=== PATIENT | female | born 1995 | race African-American/Black ===

== ENCOUNTER 2017-08-14 19:56 | Emergency (ER) | payer MEDICAID ==
[~2017-08-14] VITALS: Ht 172.7 cm; Wt 77.2 kg
[~2017-08-14 19:56] MED LIST: CLIN-80 PO; CYCL-1 PO; DOXY100V2 PO; HYDR-569 PO; NAPR-56 PO; NITR100C6 PO; NO HOME MEDS; ONDA4TAB12 PO; ONDA4TAB6 PO; ONDA8TAB9 PO; SUMA100T PO
[2017-08-14 20:48] LABS: URINE HCG NEGATIVE (NEG)
[2017-08-14 20:59] LABS: COLOR,URINE Yellow (Yellow); GLUCOSE, URINE Negative (Neg); KETONES,URINE Negative (Neg); LEUKOCYTE ESTERASE ,URINE Moderate (Neg); NITRITES, URINE Negative (Neg); OCCULT BLOOD,URINE Negative (Neg); PH,URINE 6.5 (4.8-8.0); PROTEIN,URINE Negative (Neg)
[2017-08-14 21:04] LABS: CLARITY,URINE Slightly Cloudy (Clear); UA COLLECTION TYPE CLN CATCH MIDSTREAM
[2017-08-14 21:18] LABS: BACTERIA,URINE 2+ /HPF (Neg); MUCUS STRANDS FEW /LPF (Neg); RBC,URINE NONE SEEN /HPF (0-2); SQUAMOUS EPITHELIAL CELL,UR MANY /LPF (FEW)
[2017-08-14 21:24] VITALS: BP 114/70
[2017-08-14 21:52] LABS: BASOPHILS # (AUTO) 0.1 X10'3 (0-0.2); BASOPHILS % (AUTO) 0.7 % (0-1); EOSINOPHILS # (AUTO) 0.2 X10'3 (0-0.9); EOSINOPHILS % (AUTO) 1.8 % (0-6); HEMATOCRIT 39.5 % (35.0-45.0); HEMOGLOBIN 12.9 g/dl (12.0-16.0); LYMPHOCYTES # (AUTO) 2.6 X10'3 (1.1-4.8); LYMPHOCYTES % (AUTO) 21.4 % (21-51); MEAN CORPUSCULAR HEMOGLOBIN 27.1 PG (27.0-31.0); MEAN CORPUSCULAR HGB CONC 32.7 % (33.0-36.5); MEAN PLATELET VOLUME 10.4 FL (7.4-10.4); MONOCYTES # (AUTO) 0.5 X10'3 (0-0.9); MONOCYTES % (AUTO) 4.6 % (2-12); NEUTROPHILS # (AUTO) 8.6 X10'3 (1.8-7.7); NEUTROPHILS % (AUTO) 71.5 % (42-75); PLATELET COUNT 219 X10'3 (140-440); RED BLOOD COUNT 4.76 X10'6 (4.20-5.60); RED CELL DISTRIBUTION WIDTH 13.7 % (11.5-14.5)
[2017-08-14] MEDS ORDERED: ondansetron/PF 4mg/2ml inj IV ONE (21:55)
[2017-08-14] MEDS ORDERED: normal saline 1000ML IV soln IVB ONE (21:55)
[2017-08-14] MEDS ORDERED: fentaNYL/PF 50MCG/1 ML 2ML syringe IV ONE (21:55)
[2017-08-14 22:08] LABS: ALANINE AMINOTRANSFERASE 24 U/L (12-78); ALBUMIN 3.5 G/DL (3.4-5.0); ALBUMIN/GLOBULIN RATIO 0.8 (1.1-1.5); ALKALINE PHOSPHATASE 64 IU/L (46-116); ANION GAP 9 (8-16); ASPARTATE AMINO TRANSFERASE 13 U/L (10-37); BILIRUBIN,TOTAL 0.2 MG/DL (0.1-1.0); BLOOD UREA NITROGEN 12 MG/DL (7-18); BUN/CREATININE RATIO 12.4 (6.6-38.0); CALCIUM 9.3 MG/DL (8.5-10.1); CHLORIDE 106 MMOL/L (99-107); CREATININE 0.97 MG/DL (0.40-0.90); GLUCOSE 88 MG/DL (70-104); LIPASE 148 U/L (73-393); POTASSIUM 3.6 MMOL/L (3.5-5.1); SODIUM 142 MMOL/L (135-145); TOTAL CARBON DIOXIDE 27.4 MMOL/L (24-32); TOTAL PROTEIN 7.7 G/DL (6.4-8.2); eGFR 85 ML/MIN
[2017-08-14 22:19] LABS: TOTAL CELLS COUNTED 100
[2017-08-14 22:21] LABS: LARGE PLATELETS FEW; PLATELET ESTIMATE NORMAL; TOXIC VACUOLATION 2+
[2017-08-14] MEDS ORDERED: ONDA4TAB9 SL (23:23)
[2017-08-14] MEDS ORDERED: FAMO20TA44 PO (23:23)
[2017-08-14] MEDS ORDERED: SUCR1ORA2 PO (23:23)
[2017-08-14] MEDS ORDERED: OMEP20CA10 PO (23:23)
== END 2017-08-14 23:53 | disposition home or self-care (01) ==
LOC: ER 19:57
DX: K52.9 Noninfective gastroenteritis and colitis, unspecified (principal); R10.11 Right upper quadrant pain; Z86.14 Personal history of Methicillin resistant Staphylococcus aureus infection; Z79.899 Other long term (current) drug therapy
CPT/HCPCS: 36415; 76700; 80053; 81001; 81025; 83690; 85025; 96361; 96374; 96375; 99285; J2405; J3010; J7030

== ENCOUNTER 2017-09-15 11:55 | Emergency (ER) | payer MEDICAID ==
[~2017-09-15] VITALS: Ht 172.7 cm; Wt 80.0 kg
[~2017-09-15 11:55] MED LIST changes: +FAMO20TA44 PO; +OMEP20CA10 PO; +SUCR1ORA2 PO
[2017-09-15] MEDS ORDERED: proCHLORperazine 10mg tablet PO ONE (13:10)
[2017-09-15] MEDS ORDERED: ketorolac trometh inj. 60 MG/2 ML VIAL IM ONE (13:10)
[2017-09-15] MEDS ORDERED: aspirin 325mg tablet PO ONE (13:10)
[2017-09-15] MEDS ORDERED: acetaminophen 325mg tablet PO ONE (13:10)
[2017-09-15 14:27] LABS: CLARITY,URINE Clear (Clear); COLOR,URINE Yellow (Yellow); GLUCOSE, URINE Negative (Neg); KETONES,URINE Negative (Neg); LEUKOCYTE ESTERASE ,URINE Moderate (Neg); NITRITES, URINE Negative (Neg); OCCULT BLOOD,URINE Negative (Neg); PH,URINE 6.5 (4.8-8.0); PROTEIN,URINE Negative (Neg)
[2017-09-15 14:28] LABS: URINE HCG NEGATIVE (NEG)
[2017-09-15 14:30] LABS: UA COLLECTION TYPE NON-SPECIFIED
[2017-09-15 14:32] LABS: BACTERIA,URINE 1+ /HPF (Neg); MUCUS STRANDS NONE SEEN /LPF (Neg); RBC,URINE NONE SEEN /HPF (0-2); SQUAMOUS EPITHELIAL CELL,UR MODERATE /LPF (FEW)
[2017-09-15 15:00] LABS: PREOP URINE HCG NEGATIVE (NEGATIVE)
[2017-09-15] MEDS ORDERED: fluconazole 100mg tablet PO ONE (15:40)
[2017-09-15] MEDS ORDERED: CefTRIAXone 250MG IM Kit w/LIDOcaine IM ONE (15:40)
[2017-09-15] MEDS ORDERED: metroNIDAZOLE 500mg tablet PO ONE (15:40)
[2017-09-15] MEDS ORDERED: ondansetron 4mg rapidly disintigrating tab PO ONE (15:40)
[2017-09-15] MEDS ORDERED: azithromycin 250mg tablet PO ONE (15:40)
[2017-09-15] MEDS ORDERED: IBUP-1984 PO (15:43)
[2017-09-15 16:25] VITALS: BP 138/77
== END 2017-09-15 16:35 | disposition home or self-care (01) ==
LOC: ER 11:56
DX: N89.8 Other specified noninflammatory disorders of vagina (principal); R51 Headache; Z86.14 Personal history of Methicillin resistant Staphylococcus aureus infection; Z79.899 Other long term (current) drug therapy
CPT/HCPCS: 81001; 81025; 87088; 87210; 96372; 99284; J0696; J1885; J3490; Q0164

== ENCOUNTER 2017-10-05 20:57 | Emergency (ER) | payer MEDICAID ==
[~2017-10-05] VITALS: Ht 5703.2 cm; Wt 92.0 kg
[~2017-10-05 20:57] MED LIST changes: +IBUP-1984 PO; +PENI500T2 PO
[2017-10-05] MEDS ORDERED: dexamethasone sod phosphate 10mg/ml inj PO STA (21:33)
[2017-10-05 21:59] VITALS: BP 116/73
== END 2017-10-05 22:00 | disposition home or self-care (01) ==
LOC: ER 20:58
DX: J02.9 Acute pharyngitis, unspecified (principal)
CPT/HCPCS: 99282; J1100

== ENCOUNTER 2017-11-17 20:42 | Emergency (ER) | payer MEDICAID ==
[~2017-11-17] VITALS: Ht 172.7 cm; Wt 86.0 kg
[~2017-11-17 20:42] MED LIST changes: -IBUP-1984 PO; -PENI500T2 PO
[2017-11-17 22:00] LABS: URINE HCG NEGATIVE (NEG)
[2017-11-17] MEDS ORDERED: acetaminophen 325mg tablet PO ONE (22:10)
[2017-11-17 22:21] LABS: CLARITY,URINE CLOUDY (Clear); COLOR,URINE YELLOW (Yellow); GLUCOSE, URINE NEGATIVE (Neg); KETONES,URINE NEGATIVE (Neg); LEUKOCYTE ESTERASE ,URINE SMALL (Neg); NITRITES, URINE NEGATIVE (Neg); OCCULT BLOOD,URINE LARGE (Neg); PH,URINE 7.5 (4.8-8.0); PROTEIN,URINE 30 mg/dl (Neg)
[2017-11-17 22:23] LABS: UA COLLECTION TYPE CLN CATCH MIDSTREAM
[2017-11-17] MEDS ORDERED: HYDROcodone/acetaminophen 10/325mg tab PO ONE (22:35)
[2017-11-17 22:49] LABS: BACTERIA,URINE 3+ /HPF (Neg); MUCUS STRANDS FEW /LPF (Neg); SQUAMOUS EPITHELIAL CELL,UR FEW /LPF (FEW); WBC,URINE 50-100 /HPF (0-4)
[2017-11-17 22:50] LABS: WBC CLUMPS,URINE FEW /HPF (NEGATIVE)
[2017-11-17] MEDS ORDERED: PHEN-716 PO (23:22)
[2017-11-17] MEDS ORDERED: HYDR-3965 PO (23:22)
[2017-11-17] MEDS ORDERED: SULF1TAB49 PO (23:22)
[2017-11-17] MEDS ORDERED: phenazopyridine 100mg tablet PO ONE (23:25)
[2017-11-17 23:33] VITALS: BP 128/81
== END 2017-11-17 23:34 | disposition home or self-care (01) ==
LOC: ER 20:42
DX: N39.0 Urinary tract infection, site not specified (principal); Z86.14 Personal history of Methicillin resistant Staphylococcus aureus infection; Z79.899 Other long term (current) drug therapy
CPT/HCPCS: 81001; 81025; 87077; 87088; 87186; 99284

== ENCOUNTER 2017-12-18 22:26 | Emergency (ER) | payer MEDICAID ==
[~2017-12-18] VITALS: Ht 172.7 cm; Wt 86.4 kg
[~2017-12-18 22:26] MED LIST changes: +PHEN-716 PO; +SULF1TAB49 PO
[2017-12-18 22:30] VITALS: BP 115/37
[2017-12-18 23:23] LABS: BASOPHILS # (AUTO) 0.1 X10'3 (0-0.2); BASOPHILS % (AUTO) 0.4 % (0-1); EOSINOPHILS # (AUTO) 0.3 X10'3 (0-0.9); EOSINOPHILS % (AUTO) 2.4 % (0-6); HEMOGLOBIN 13.2 g/dl (12.0-16.0); LYMPHOCYTES # (AUTO) 2.7 X10'3 (1.1-4.8); LYMPHOCYTES % (AUTO) 19.7 % (21-51); MEAN CORPUSCULAR HEMOGLOBIN 26.9 PG (27.0-31.0); MEAN CORPUSCULAR HGB CONC 33.1 % (33.0-36.5); MEAN CORPUSCULAR VOLUME 81.2 FL (78-98); MEAN PLATELET VOLUME 9.9 FL (7.4-10.4); MONOCYTES # (AUTO) 0.5 X10'3 (0-0.9); MONOCYTES % (AUTO) 3.7 % (2-12); NEUTROPHILS # (AUTO) 10.1 X10'3 (1.8-7.7); NEUTROPHILS % (AUTO) 73.8 % (42-75); PLATELET COUNT 225 X10'3 (140-440); RED BLOOD COUNT 4.92 X10'6 (4.20-5.60); RED CELL DISTRIBUTION WIDTH 13.9 % (11.5-14.5); WHITE BLOOD COUNT 13.7 X10'3 (4.5-11.0)
[2017-12-18 23:31] LABS: ALANINE AMINOTRANSFERASE 29 U/L (12-78); ALBUMIN 3.5 G/DL (3.4-5.0); ALBUMIN/GLOBULIN RATIO 0.9 (1.1-1.5); ALKALINE PHOSPHATASE 65 IU/L (46-116); ANION GAP 10 (8-16); ASPARTATE AMINO TRANSFERASE 14 U/L (10-37); BILIRUBIN,TOTAL 0.2 MG/DL (0.1-1.0); BLOOD UREA NITROGEN 11 MG/DL (7-18); BUN/CREATININE RATIO 12.8 (6.6-38.0); CALCIUM 9.1 MG/DL (8.5-10.1); CHLORIDE 104 MMOL/L (99-107); CREATININE 0.86 MG/DL (0.40-0.90); GLUCOSE 93 MG/DL (70-104); SODIUM 140 MMOL/L (135-145); TOTAL PROTEIN 7.6 G/DL (6.4-8.2); eGFR > 90 ML/MIN
[2017-12-18 23:48] LABS: URINE HCG NEGATIVE (NEG)
[2017-12-18 23:49] LABS: CLARITY,URINE CLEAR (Clear); COLOR,URINE YELLOW (Yellow); GLUCOSE, URINE NEGATIVE (Neg); KETONES,URINE TRACE mg/dl (Neg); LEUKOCYTE ESTERASE ,URINE NEGATIVE (Neg); NITRITES, URINE NEGATIVE (Neg); OCCULT BLOOD,URINE NEGATIVE (Neg); PH,URINE 6.5 (4.8-8.0); PROTEIN,URINE NEGATIVE (Neg); UROBILINOGEN,URINE 0.2 E.U/dL (0.2-1.0)
[2017-12-18 23:50] LABS: UA COLLECTION TYPE VOIDED
[2017-12-19] MEDS ORDERED: DICY10CA88 PO (00:07)
[2017-12-19] MEDS ORDERED: ONDA4TAB12 PO (00:07)
== END 2017-12-19 00:15 | disposition home or self-care (01) ==
LOC: ER 22:26
DX: R10.9 Unspecified abdominal pain (principal); R11.2 Nausea with vomiting, unspecified; Z86.14 Personal history of Methicillin resistant Staphylococcus aureus infection; Z79.899 Other long term (current) drug therapy
CPT/HCPCS: 36415; 80053; 81003; 81025; 85025; 85610; 99284

== ENCOUNTER 2018-02-22 15:05 | Emergency (ER) | payer MEDICAID ==
[~2018-02-22] VITALS: Ht 172.7 cm; Wt 90.0 kg
[~2018-02-22 15:05] MED LIST changes: -CLIN-80 PO; +CLIN300C85 PO; +DICY10CA88 PO; -SULF1TAB49 PO
[2018-02-22 15:20] VITALS: BP 139/95
[2018-02-22] MEDS ORDERED: pantoprazole 40 MG vial IV STA (15:34)
[2018-02-22] MEDS ORDERED: normal saline 1000ml 1,000 ML IV STA (15:34)
[2018-02-22] MEDS ORDERED: ondansetron/PF 4mg/2ml inj IV STA (15:34)
[2018-02-22] MEDS ORDERED: ONDA8TAB9 PO (17:10)
== END 2018-02-22 17:23 | disposition home or self-care (01) ==
LOC: ER 15:06
DX: A08.4 Viral intestinal infection, unspecified (principal); Z86.14 Personal history of Methicillin resistant Staphylococcus aureus infection; Z79.2 Long term (current) use of antibiotics; Z79.899 Other long term (current) drug therapy
CPT/HCPCS: 96361; 96374; 96375; 99284; C9113; J2405; J7030

== ENCOUNTER 2018-08-27 14:53 | Emergency (ER) | payer MEDICAID ==
[~2018-08-27] VITALS: Ht 172.7 cm; Wt 86.4 kg
[~2018-08-27 14:53] MED LIST changes: +HYDR-4383 PO; -HYDR-569 PO
[2018-08-27 15:49] VITALS: BP 117/77
[2018-08-27] MEDS ORDERED: HYDROcodone/acetaminophen 5mg/325mg tablet PO ONE (16:20)
== END 2018-08-27 16:25 | disposition home or self-care (01) ==
LOC: ER 14:54
DX: T16.1XXA Foreign body in right ear, initial encounter (principal); Z79.899 Other long term (current) drug therapy; Y92.9 Unspecified place or not applicable
CPT/HCPCS: 99284

== ENCOUNTER 2018-10-18 10:51 | Emergency (ER) | payer MEDICAID, OTHER ==
[~2018-10-18] VITALS: Ht 172.7 cm; Wt 98.4 kg
[2018-10-18 10:56] VITALS: BP 129/71
[2018-10-18] MEDS ORDERED: METR500T PO (14:07)
[2018-10-18 14:08] LABS: URINE HCG NEGATIVE (NEG)
[2018-10-18] MEDS ORDERED: FLUC150T66 PO (14:08)
[2018-10-18 14:19] LABS: CLARITY,URINE CLEAR (Clear); COLOR,URINE YELLOW (Yellow); GLUCOSE, URINE NEGATIVE (Neg); KETONES,URINE NEGATIVE (Neg); LEUKOCYTE ESTERASE ,URINE SMALL (Neg); NITRITES, URINE NEGATIVE (Neg); OCCULT BLOOD,URINE NEGATIVE (Neg); PROTEIN,URINE NEGATIVE (Neg); UA COLLECTION TYPE CLN CATCH MIDSTREAM
[2018-10-18 14:32] LABS: BACTERIA,URINE 1+ /HPF (Neg); MUCUS STRANDS FEW /LPF (Neg); RBC,URINE 0-2 /HPF (0-2); SQUAMOUS EPITHELIAL CELL,UR MANY /LPF (FEW)
[2018-10-18] MEDS ORDERED: ketorolac trometh. 30mg/ml inj. IV ONE (15:40)
[2018-10-18] MEDS ORDERED: normal saline 1000ml 1,000 ML IV ONE (15:40)
== END 2018-10-18 14:24 | disposition home or self-care (01) ==
LOC: ER 10:52
DX: N89.8 Other specified noninflammatory disorders of vagina (principal); Z86.14 Personal history of Methicillin resistant Staphylococcus aureus infection; Z79.2 Long term (current) use of antibiotics; Z79.899 Other long term (current) drug therapy
CPT/HCPCS: 81001; 81025; 87210; 99283

== ENCOUNTER 2018-11-24 19:21 | Emergency (ER) | payer OTHER ==
[~2018-11-24] VITALS: Ht 172.7 cm; Wt 97.4 kg
[~2018-11-24 19:21] MED LIST changes: +CLIN-96 PO; -CLIN300C85 PO
[2018-11-24 19:23] VITALS: BP 120/77
[2018-11-24 19:47] LABS: CLARITY,URINE CLEAR (Clear); COLOR,URINE YELLOW (Yellow); GLUCOSE, URINE NEGATIVE (Neg); KETONES,URINE NEGATIVE (Neg); LEUKOCYTE ESTERASE ,URINE SMALL (Neg); NITRITES, URINE NEGATIVE (Neg); OCCULT BLOOD,URINE NEGATIVE (Neg); PROTEIN,URINE NEGATIVE (Neg); UA COLLECTION TYPE CLN CATCH MIDSTREAM
[2018-11-24 19:50] LABS: URINE HCG NEGATIVE (NEG)
[2018-11-24 19:55] LABS: BACTERIA,URINE 1+ /HPF (Neg); MUCUS STRANDS MODERATE /LPF (Neg); RBC,URINE NONE SEEN /HPF (0-2); SQUAMOUS EPITHELIAL CELL,UR MANY /LPF (FEW); WBC,URINE 0-4 /HPF (0-4)
[2018-11-24] MEDS ORDERED: diphenhydrAMINE 50 mg/ml inj IM ONE (20:05)
[2018-11-24] MEDS ORDERED: metoclopramide 5 mg/ml inj IM ONE (20:05)
== END 2018-11-24 20:52 | disposition home or self-care (01) ==
LOC: ER 19:21
DX: R10.31 Right lower quadrant pain (principal); R51 Headache; R11.0 Nausea; R63.0 Anorexia
CPT/HCPCS: 81001; 81025; 99283; J1200; J2765

== ENCOUNTER 2019-01-22 10:14 | Emergency (ER) | payer MEDICAID, OTHER ==
[~2019-01-22] VITALS: Ht 172.7 cm; Wt 97.5 kg
[2019-01-22 10:48] LABS: CLARITY,URINE SLIGHTLY CLOUDY (Clear); COLOR,URINE YELLOW (Yellow); GLUCOSE, URINE NEGATIVE (Neg); KETONES,URINE NEGATIVE (Neg); LEUKOCYTE ESTERASE ,URINE MODERATE (Neg); NITRITES, URINE NEGATIVE (Neg); OCCULT BLOOD,URINE NEGATIVE (Neg); PH,URINE 5.5 (4.8-8.0); PROTEIN,URINE NEGATIVE (Neg); URINE HCG NEGATIVE (NEG); UROBILINOGEN,URINE 0.2 E.U/dL (0.2-1.0)
[2019-01-22 10:53] LABS: UA COLLECTION TYPE CLN CATCH MIDSTREAM
[2019-01-22 10:54] LABS: BACTERIA,URINE 1+ /HPF (Neg); MUCUS STRANDS FEW /LPF (Neg); RBC,URINE 0-2 /HPF (0-2); SQUAMOUS EPITHELIAL CELL,UR MANY /LPF (FEW); WBC,URINE 0-4 /HPF (0-4)
[2019-01-22 11:03] LABS: BASOPHILS # (AUTO) 0.1 X10'3 (0-0.2); BASOPHILS % (AUTO) 0.5 % (0-1); EOSINOPHILS # (AUTO) 0.2 X10'3 (0-0.9); EOSINOPHILS % (AUTO) 1.7 % (0-6); HEMATOCRIT 38.7 % (35.0-45.0); HEMOGLOBIN 12.6 g/dl (12.0-16.0); LYMPHOCYTES # (AUTO) 2.3 X10'3 (1.1-4.8); LYMPHOCYTES % (AUTO) 21.3 % (21-51); MEAN CORPUSCULAR HEMOGLOBIN 26.7 PG (27.0-31.0); MEAN CORPUSCULAR HGB CONC 32.5 g/dL (33.0-36.5); MEAN PLATELET VOLUME 8.6 FL (7.4-10.4); MONOCYTES # (AUTO) 0.5 X10'3 (0-0.9); MONOCYTES % (AUTO) 4.7 % (2-12); NEUTROPHILS # (AUTO) 7.8 X10'3 (1.8-7.7); NEUTROPHILS % (AUTO) 71.8 % (42-75); PLATELET COUNT 223 X10'3 (140-440); RED BLOOD COUNT 4.72 X10'6 (4.20-5.60); RED CELL DISTRIBUTION WIDTH 14.2 % (11.5-14.5); WHITE BLOOD COUNT 10.9 X10'3 (4.5-11.0)
[2019-01-22 11:17] LABS: ALANINE AMINOTRANSFERASE 21 U/L (12-78); ALBUMIN 3.2 G/DL (3.4-5.0); ALBUMIN/GLOBULIN RATIO 0.8 (1.1-1.5); ALKALINE PHOSPHATASE 57 IU/L (46-116); ANION GAP 9 (8-16); ASPARTATE AMINO TRANSFERASE 13 U/L (10-37); BILIRUBIN,TOTAL 0.3 MG/DL (0.1-1.0); BLOOD UREA NITROGEN 9 MG/DL (7-18); BUN/CREATININE RATIO 9.2 (6.6-38.0); CALCIUM 8.6 MG/DL (8.5-10.1); CHLORIDE 104 MMOL/L (99-107); CREATININE 0.98 MG/DL (0.40-0.90); GLUCOSE 96 MG/DL (70-104); POTASSIUM 3.9 MMOL/L (3.5-5.1); SODIUM 138 MMOL/L (135-145); TOTAL CARBON DIOXIDE 25.1 MMOL/L (24-32); TOTAL PROTEIN 7.2 G/DL (6.4-8.2); eGFR 84 ML/MIN
[2019-01-22] MEDS ORDERED: ondansetron 4mg rapidly disintigrating tab PO ONE (11:25)
[2019-01-22] MEDS ORDERED: ibuprofen tablet 400 MG TABLET PO ONE (11:25)
[2019-01-22 11:28] LABS: CLARITY,URINE SLIGHTLY CLOUDY (Clear); COLOR,URINE YELLOW (Yellow); GLUCOSE, URINE NEGATIVE (Neg); KETONES,URINE NEGATIVE (Neg); LEUKOCYTE ESTERASE ,URINE MODERATE (Neg); NITRITES, URINE NEGATIVE (Neg); OCCULT BLOOD,URINE NEGATIVE (Neg); PH,URINE 5.5 (4.8-8.0); PROTEIN,URINE NEGATIVE (Neg); UROBILINOGEN,URINE 0.2 E.U/dL (0.2-1.0)
[2019-01-22 11:30] LABS: UA COLLECTION TYPE CLN CATCH MIDSTREAM
[2019-01-22 11:34] LABS: BACTERIA,URINE 1+ /HPF (Neg); MUCUS STRANDS FEW /LPF (Neg); RBC,URINE 0-2 /HPF (0-2); SQUAMOUS EPITHELIAL CELL,UR MODERATE /LPF (FEW); WBC,URINE 0-4 /HPF (0-4)
[2019-01-22 12:07] LABS: URINE AMPHETAMINE SCREEN NEGATIVE (Neg); URINE BARBITUATE SCREEN NEGATIVE (Neg); URINE BENZODIAZEPINES SCREEN NEGATIVE (Neg); URINE CANNABINOID SCREEN NEGATIVE (Neg); URINE COCAINE SCREEN NEGATIVE (Neg); URINE METHADONE SCREEN NEGATIVE (Neg); URINE OPIATE SCREEN NEGATIVE (Neg); URINE PHENCYCLIDINE SCREEN NEGATIVE (Neg)
[2019-01-22 12:28] VITALS: BP 120/46
== END 2019-01-22 12:30 | disposition home or self-care (01) ==
LOC: ER 10:14
DX: R10.11 Right upper quadrant pain (principal); Z87.440 Personal history of urinary (tract) infections; Z79.899 Other long term (current) drug therapy
CPT/HCPCS: 36415; 80053; 80305; 81001; 81025; 85025; 85610; 87088; 99284

== ENCOUNTER 2019-03-27 22:06 | Emergency (ER) | payer MEDICAID ==
[~2019-03-27] VITALS: Ht 172.7 cm; Wt 94.4 kg
[~2019-03-27 22:06] MED LIST changes: -OMEP20CA10 PO; +OMEP20CA11 PO
[2019-03-27 23:33] LABS: BASOPHILS # (AUTO) 0.1 X10'3 (0-0.2); BASOPHILS % (AUTO) 0.7 % (0-1); EOSINOPHILS # (AUTO) 0.2 X10'3 (0-0.9); EOSINOPHILS % (AUTO) 1.5 % (0-6); HEMATOCRIT 40.3 % (35.0-45.0); HEMOGLOBIN 13.3 g/dl (12.0-16.0); LYMPHOCYTES # (AUTO) 3.3 X10'3 (1.1-4.8); LYMPHOCYTES % (AUTO) 29.7 % (21-51); MEAN CORPUSCULAR HEMOGLOBIN 27.5 PG (27.0-31.0); MEAN CORPUSCULAR HGB CONC 33.1 g/dL (33.0-36.5); MEAN CORPUSCULAR VOLUME 82.9 FL (78-98); MEAN PLATELET VOLUME 9.1 FL (7.4-10.4); MONOCYTES # (AUTO) 0.6 X10'3 (0-0.9); MONOCYTES % (AUTO) 5.4 % (2-12); NEUTROPHILS # (AUTO) 6.9 X10'3 (1.8-7.7); NEUTROPHILS % (AUTO) 62.7 % (42-75); PLATELET COUNT 243 X10'3 (140-440); RED BLOOD COUNT 4.86 X10'6 (4.20-5.60); RED CELL DISTRIBUTION WIDTH 13.9 % (11.5-14.5); WHITE BLOOD COUNT 10.9 X10'3 (4.5-11.0)
[2019-03-27 23:42] LABS: ALANINE AMINOTRANSFERASE 25 U/L (12-78); ALBUMIN 3.5 G/DL (3.4-5.0); ALBUMIN/GLOBULIN RATIO 0.8 (1.1-1.5); ALKALINE PHOSPHATASE 64 IU/L (46-116); ANION GAP 8 (8-16); ASPARTATE AMINO TRANSFERASE 12 U/L (10-37); BILIRUBIN,TOTAL 0.3 MG/DL (0.1-1.0); BLOOD UREA NITROGEN 10 MG/DL (7-18); BUN/CREATININE RATIO 9.7 (6.6-38.0); CALCIUM 9.2 MG/DL (8.5-10.1); CHLORIDE 104 MMOL/L (99-107); CREATININE 1.03 MG/DL (0.40-0.90); GLUCOSE 94 MG/DL (70-104); POTASSIUM 3.9 MMOL/L (3.5-5.1); SODIUM 139 MMOL/L (135-145); TOTAL CARBON DIOXIDE 26.6 MMOL/L (24-32); TOTAL PROTEIN 7.7 G/DL (6.4-8.2); eGFR 78 ML/MIN
[2019-03-28 00:09] LABS: URINE HCG NEGATIVE (NEG)
[2019-03-28 00:10] LABS: CLARITY,URINE CLEAR (Clear); COLOR,URINE YELLOW (Yellow); GLUCOSE, URINE NEGATIVE (Neg); KETONES,URINE NEGATIVE (Neg); LEUKOCYTE ESTERASE ,URINE NEGATIVE (Neg); NITRITES, URINE NEGATIVE (Neg); OCCULT BLOOD,URINE LARGE (Neg); PROTEIN,URINE NEGATIVE (Neg)
[2019-03-28 00:24] LABS: UA COLLECTION TYPE NON-SPECIFIED
[2019-03-28 00:34] LABS: BACTERIA,URINE 1+ /HPF (Neg); RBC,URINE NONE SEEN /HPF (0-2); SQUAMOUS EPITHELIAL CELL,UR MANY /LPF (FEW); WBC,URINE 0-4 /HPF (0-4)
[2019-03-28 00:35] LABS: MUCUS STRANDS MODERATE /LPF (Neg)
[2019-03-28] MEDS ORDERED: ondansetron 4mg rapidly disintigrating tab PO ONE (00:55)
[2019-03-28] MEDS ORDERED: pantoprazole 40mg Tablet.DR PO ONE (00:55)
[2019-03-28] MEDS ORDERED: ONDA8TAB6 PO (00:56)
[2019-03-28] MEDS ORDERED: PANT-47 PO (00:56)
[2019-03-28 01:36] VITALS: BP 115/75
== END 2019-03-28 01:39 | disposition home or self-care (01) ==
LOC: ER 22:07
DX: R63.0 Anorexia (principal); R11.0 Nausea; R53.1 Weakness; R10.13 Epigastric pain; F41.9 Anxiety disorder, unspecified; F32.9 Major depressive disorder, single episode, unspecified; Z68.31 Body mass index [BMI] 31.0-31.9, adult; Z86.14 Personal history of Methicillin resistant Staphylococcus aureus infection; Z79.899 Other long term (current) drug therapy
CPT/HCPCS: 36415; 80053; 81001; 81025; 85025; 99283; J2405; 81003

== ENCOUNTER 2019-06-03 10:30 | Emergency (ER) | payer MEDICAID ==
[~2019-06-03] VITALS: Ht 172.7 cm; Wt 86.4 kg
[~2019-06-03 10:30] MED LIST changes: +ONDA8TAB6 PO; +PANT-47 PO
--- NOTE | 2019-06-03 11:47 | NUR ---
dr jean baptiste at bedside doing the ultrasound.
[2019-06-03] MEDS ORDERED: HYDROcodone/acetaminophen 5mg/325mg tablet PO ONE (12:00)
[2019-06-03] MEDS ORDERED: ibuprofen tablet 400 MG TABLET PO ONE (12:00)
[2019-06-03] MEDS ORDERED: ondansetron 4mg rapidly disintigrating tab PO ONE (12:00)
[2019-06-03] MEDS ORDERED: IBUP-1985 PO (12:03)
[2019-06-03] MEDS ORDERED: HYDR-3965 PO (12:03)
[2019-06-03 12:14] VITALS: BP 124/61
== END 2019-06-03 12:16 | disposition home or self-care (01) ==
LOC: ER 10:30
DX: M54.5 Low back pain (principal); F41.9 Anxiety disorder, unspecified; F32.9 Major depressive disorder, single episode, unspecified; Z86.14 Personal history of Methicillin resistant Staphylococcus aureus infection; Z79.2 Long term (current) use of antibiotics; Z79.899 Other long term (current) drug therapy; V89.2XXA Person injured in unspecified motor-vehicle accident, traffic, initial encounter; Y93.89 Activity, other specified; Y92.488 Other paved roadways as the place of occurrence of the external cause; Y99.8 Other external cause status
CPT/HCPCS: 99284

== ENCOUNTER 2019-10-15 10:18 | Emergency (ER) | payer MEDICAID ==
[~2019-10-15] VITALS: Ht 172.7 cm; Wt 86.4 kg
[~2019-10-15 10:18] MED LIST changes: +CLIN-90 PO; -CLIN-96 PO; +IBUP-1985 PO; -OMEP20CA11 PO; +OMEP20CA15 PO
[2019-10-15 10:57] LABS: CLARITY,URINE SLIGHTLY CLOUDY (Clear); COLOR,URINE YELLOW (Yellow); GLUCOSE, URINE NEGATIVE (Neg); KETONES,URINE NEGATIVE (Neg); LEUKOCYTE ESTERASE ,URINE SMALL (Neg); NITRITES, URINE NEGATIVE (Neg); OCCULT BLOOD,URINE NEGATIVE (Neg); PH,URINE 7.5 (4.8-8.0); PROTEIN,URINE NEGATIVE (Neg); UROBILINOGEN,URINE 0.2 E.U/dL (0.2-1.0)
[2019-10-15 11:00] LABS: UA COLLECTION TYPE CLN CATCH MIDSTREAM
[2019-10-15 11:05] LABS: BASOPHILS # (AUTO) 0.1 X10'3 (0-0.2); BASOPHILS % (AUTO) 0.8 % (0-1); EOSINOPHILS # (AUTO) 0.2 X10'3 (0-0.9); EOSINOPHILS % (AUTO) 1.7 % (0-6); HEMATOCRIT 40.8 % (35.0-45.0); HEMOGLOBIN 13.5 g/dl (12.0-16.0); LYMPHOCYTES # (AUTO) 2.4 X10'3 (1.1-4.8); LYMPHOCYTES % (AUTO) 23.4 % (21-51); MEAN CORPUSCULAR VOLUME 81.7 FL (78-98); MEAN PLATELET VOLUME 9.1 FL (7.4-10.4); MONOCYTES # (AUTO) 0.5 X10'3 (0-0.9); MONOCYTES % (AUTO) 4.7 % (2-12); NEUTROPHILS # (AUTO) 7.1 X10'3 (1.8-7.7); NEUTROPHILS % (AUTO) 69.4 % (42-75); PLATELET COUNT 245 X10'3 (140-440); RED BLOOD COUNT 4.99 X10'6 (4.20-5.60); RED CELL DISTRIBUTION WIDTH 14.1 % (11.5-14.5); WHITE BLOOD COUNT 10.3 X10'3 (4.5-11.0)
--- NOTE | 2019-10-15 11:06 | NUR ---
Urine rejected for culture per lab.
[2019-10-15 11:07] LABS: RBC,URINE 0-2 /HPF (0-2)
[2019-10-15 11:08] LABS: BACTERIA,URINE FEW /HPF (Neg); MUCUS STRANDS FEW /LPF (Neg); SQUAMOUS EPITHELIAL CELL,UR MANY /LPF (FEW); YEAST FEW /HPF (NEGATIVE)
[2019-10-15 11:19] LABS: URINE HCG NEGATIVE (NEG)
[2019-10-15 11:20] LABS: ALANINE AMINOTRANSFERASE 32 U/L (12-78); ALBUMIN 3.4 G/DL (3.4-5.0); ALBUMIN/GLOBULIN RATIO 0.9 (1.1-1.5); ALKALINE PHOSPHATASE 59 IU/L (46-116); ANION GAP 9 (8-16); ASPARTATE AMINO TRANSFERASE 15 U/L (10-37); BILIRUBIN,TOTAL 0.3 MG/DL (0.1-1.0); BLOOD UREA NITROGEN 9 MG/DL (7-18); BUN/CREATININE RATIO 10.7 (6.6-38.0); CALCIUM 8.9 MG/DL (8.5-10.1); CHLORIDE 107 MMOL/L (99-107); CREATININE 0.84 MG/DL (0.40-0.90); GLUCOSE 109 MG/DL (70-104); LIPASE 122 U/L (73-393); POTASSIUM 4.1 MMOL/L (3.5-5.1); SODIUM 141 MMOL/L (135-145); TOTAL CARBON DIOXIDE 24.6 MMOL/L (24-32); TOTAL PROTEIN 7.3 G/DL (6.4-8.2); eGFR > 90 ML/MIN
[2019-10-15] MEDS ORDERED: mag hydrox/Alum hydrox/simeth 30ml oral suspension PO ONE (11:55)
[2019-10-15] MEDS ORDERED: pantoprazole 40mg Tablet.DR PO ONE (11:55)
[2019-10-15] MEDS ORDERED: proCHLORperazine 10 MG/2 ml inj IM ONE (11:55)
[2019-10-15] MEDS ORDERED: LIDOcaine Viscous 15ml cup MM ONE (11:55)
[2019-10-15] MEDS ORDERED: proCHLORperazine 10mg tablet PO ONE (12:10)
[2019-10-15 12:47] VITALS: BP 117/78
== END 2019-10-15 13:39 | disposition home or self-care (01) ==
LOC: ER 10:18
DX: R10.84 Generalized abdominal pain (principal); R11.0 Nausea; M54.5 Low back pain; F41.9 Anxiety disorder, unspecified; F32.9 Major depressive disorder, single episode, unspecified; Z86.14 Personal history of Methicillin resistant Staphylococcus aureus infection; Z79.2 Long term (current) use of antibiotics; Z79.899 Other long term (current) drug therapy
CPT/HCPCS: 36415; 76700; 80053; 81001; 81025; 83690; 85025; 99284; Q0164

== ENCOUNTER 2019-11-28 14:06 | Emergency (ER) | payer MEDICAID ==
[~2019-11-28] VITALS: Ht 172.7 cm; Wt 90.0 kg
[~2019-11-28 14:06] MED LIST changes: -CLIN-90 PO; +CLIN-97 PO
[2019-11-28 14:51] VITALS: BP 130/92
== END 2019-11-28 14:53 | disposition home or self-care (01) ==
LOC: ER 14:07
DX: R51 Headache (principal); F41.9 Anxiety disorder, unspecified; F32.9 Major depressive disorder, single episode, unspecified; Z86.14 Personal history of Methicillin resistant Staphylococcus aureus infection; Z79.2 Long term (current) use of antibiotics; Z79.899 Other long term (current) drug therapy
CPT/HCPCS: 99281